=== PATIENT | male | born 1950 | race Hispanic/Latino ===

== ENCOUNTER 2021-09-15 16:35 | Emergency (ER) | payer MEDICARE ==
[~2021-09-15] VITALS: Ht 170.2 cm; Wt 93.0 kg
[2021-09-15 17:29] LABS: BASOPHILS # (AUTO) 0.1 (0.0-0.1); BASOPHILS % 0.7 % (0.0-1.0); EOSINOPHILS # (AUTO) 0.3 (0.0-0.4); HEMATOCRIT 45.4 % (38.2-49.6); HEMOGLOBIN 15.3 g/dL (14.0-18.0); LYMPHOCYTES # (AUTO) 4.2 (1.0-3.2); LYMPHOCYTES % 47.4 % (18.0-39.1); MEAN CORPUSCULAR HEMOGLOBIN 31.5 pg (28-32); MEAN CORPUSCULAR HGB CONC 33.7 g/dL (31-35); MEAN CORPUSCULAR VOLUME 93.4 fL (81-99); MONOCYTES # (AUTO) 0.7 (0.2-0.8); MONOCYTES % 7.8 % (4.4-11.3); NEUTROPHILS # (AUTO) 3.6 (2.1-6.9); NEUTROPHILS % 40.9 % (38.7-80.0); PLATELET COUNT 278 x10e3/uL (140-360); RED BLOOD COUNT 4.86 x10e6/uL (4.3-5.7); RED CELL DISTRIBUTION WIDTH 13.2 % (11.7-14.4)
[2021-09-15] MEDS ORDERED: MECLIZINE HCL 12.5 MG TAB PO ONE (17:30)
[2021-09-15 17:46] LABS: ALBUMIN 3.7 g/dL (3.5-5.0); ALBUMIN/GLOBULIN RATIO 1.1 (0.8-2.0); CALCIUM 8.8 mg/dL (8.4-10.2); CREATININE, SERUM 0.87 mg/dL (0.72-1.25)
[2021-09-15] MEDS ORDERED: IOPAMIDOL 370 MG/ML 100 ML INFUS..BTL INJ ONE (18:46)
[2021-09-15] MEDS ORDERED: SODIUM CHLORIDE 0.9% 100 ML ONE (18:47)
[2021-09-15] MEDS ORDERED: MECLIZINE HCL12.5 MG PO (19:46)
[2021-09-15 20:17] VITALS: BP 109/86
== END 2021-09-15 19:57 | disposition home or self-care (01) ==
LOC: ER 16:39
DX: R42 Dizziness and giddiness (principal); R11.2 Nausea with vomiting, unspecified; H53.8 Other visual disturbances
CPT/HCPCS: 36415; 70496; 80053; 84484; 85025; 93005; 99284; J7050; J8597; Q9967

== ENCOUNTER 2022-06-10 03:08 | Emergency (ER) | payer MEDICARE ==
[~2022-06-10] VITALS: Ht 170.2 cm; Wt 93.0 kg
[~2022-06-10 03:08] MED LIST: AZITHROMYCIN250 MG PO; MECLIZINE HCL12.5 MG PO; PREDNISONE20 MG PO; VENTOLIN HFA18 GM INH
[2022-06-10] MEDS ORDERED: PAXLOVID 300-11 EACH PO (04:10)
== END 2022-06-10 05:10 | disposition home or self-care (01) ==
LOC: ER 03:12
DX: R05.9 Cough, unspecified (principal); U07.1 COVID-19; M54.6 Pain in thoracic spine; Z77.098 Contact with and (suspected) exposure to other hazardous, chiefly nonmedicinal, chemicals
CPT/HCPCS: 71046; 99283; U0002